=== PATIENT | male | born 1980 | race Caucasian/White ===

== ENCOUNTER 2024-05-08 08:05 | Emergency (ER) | payer SELFPAY ==
[2024-05-08 08:13] VITALS: BP 139/87; PULSE 85; RESP 17; TEMP 36.8; O2SAT 94; BMI 25.8
--- NOTE | 2024-05-08 08:50 | W.ED.GENADLT ---
HPI - General Adult General: Chief complaint: General Medical Stated complaint: generalized pain, something is moving inside him Time Seen by Provider: 05/08/24 08:29 History of Present Illness: Patient presents to the ER with complaints of feeling something moving around inside of him. He says this been going on for about 3 years he has been to multiple ERs primary care doctor had multiple tests. He is from the [facility] and has seen all the providers in that area and is worked his way all the way out to here. Related Data Home Medications ?Medication ?Instructions ?Recorded ?Confirmed No Known Home Medications 05/08/24 05/08/24 Allergies Allergy/AdvReac Type Severity Reaction Status Date / Time Unable to Assess Allergy Unverified 05/08/24 08:17 Review of Systems General: Reports: 10 or more systems reviewed and unremarkable except in HPI and below Physical Exam Const: COMMON NORMALS: no acute distress, average body habitus, patient oriented x3, no limitations, healthy appearing, alert and well nourished HENMT: COMMON NORMALS: normocephalic, atraumatic, hearing grossly normal bilaterally, external ears normal, Normal external nose present, moist oral mucous membranes and oropharynx normal HEAD & SCALP: normocephalic and atraumatic NOSE: Normal external nose present EXTERNAL EAR: Yes external ears normal Neck/C-Spine: COMMON NORMALS: no JVD Chest: COMMONS NORMALS: normal inspection of the chest and normal palpation of entire chest wall Resp: COMMON NORMALS: normal respiratory effort, No retractions, No use of accessory muscles and clear to auscultation bilaterally AUSCULTATION: clear to auscultation bilaterally Cardio: COMMON NORMALS: no JVD, regular rate, regular rhythm, S1 normal heart sound present, S2 normal heart sound present, No gallops present (Cardio), No clicks present (Cardio), No murmurs present (Cardio) and No rub (Cardio) RATE: regular rate RHYTHM: regular rhythm HEART SOUNDS: S1 normal heart sound present and S2 normal heart sound present GI: COMMON NORMALS: Normal to inspection, nondistended, normoactive bowel sounds present, Soft to palpation, non-tender, No hepatosplenomegaly present and no masses PALPATION: Yes Soft to palpation and Yes No hepatosplenomegaly present Neuro: COMMON NORMALS: patient oriented x3 SENSORIUM/ORIENTATION: Yes alert Course Vital Signs: Vital signs: Vital Signs Temperature 98.3 F 05/08/24 08:13 Pulse Rate 85 05/08/24 08:13 Respiratory Rate 17 05/08/24 08:13 Blood Pressure 139/87 05/08/24 08:13 Pulse Oximetry 94 05/08/24 08:13 Oxygen Delivery Me thod Room Air 05/08/24 08:13 MDM - General Adult Medical Decision Making Lab work was discussed with patient. All essentially normal. Patient would like hemoglobin A1c, lupus panel, and alpha gal panel drawn. He was told these are more likely send outs. We will draw them and discharge him. He is to follow back up with his PCP within the next 7 days. Medical Records I reviewed the patient's medical records. Lab Data I reviewed the patient's lab results. 05/08/24 08:49 05/08/24 08:49 Laboratory Results WBC 6.92 10^3/uL (3.29-11.43) 05/08/24 08:49 RBC 5.57 10^6/uL (3.85-5.65) 05/08/24 08:49 Hgb 16.40 g/dL (11.27-16.99) 05/08/24 08:49 Hct 49.0 % (37-53) 05/08/24 08:49 MCV 88.0 fl (82-101) 05/08/24 08:49 MCH 29.4 pg (27-33) 05/08/24 08:49 MCHC 33.5 g/dL (30-55) 05/08/24 08:49 RDW 12.5 % (12.1-15.1) 05/08/24 08:49 Plt Count 250 10^3/cmm (157-399) 05/08/24 08:49 MPV 9.8 fL (7.4-10.4) 05/08/24 08:49 Neut % (Auto) 48.2 % 05/08/24 08:49 Lymph % (Auto) 41.0 % 05/08/24 08:49 [place] % (Auto) 5.6 % 05/08/24 08:49 Eos % (Auto) 3.9 % 05/08/24 08:49 Baso % (Auto) 1.0 % 05/08/24 08:49 Neut # (Auto) 3.33 10^3/uL (1.8-7.7) 05/08/24 08:49 Lymph # (Auto) 2.8 10^3/uL (0.8-4.8) 05/08/24 08:49 Ramsey # (Auto) 0.4 10^3/uL (0.2-0.9) 05/08/24 08:49 Eos # (Auto) 0.3 10^3/uL (0.0-0.8) 05/08/24 08:49 Baso # (Auto) 0.1 10^3/uL (0.0-0.1) 05/08/24 08:49 Nucleated RBC % (auto) 0 % 05/08/24 08:49 Nucleated RBCs # 0.0 /100WBC 05/08/24 08:49 Sodium 142 mmol/L (136-145) 05/08/24 08:49 Potassium 4.1 mmol/L (3.5-5.1) 05/08/24 08:49 Chloride 106 mmol/L (98-107) 05/08/24 08:49 Carbon Dioxide 26 mmol/L (22-29) 05/08/24 08:49 Anion Gap 14.1 (5-19) 05/08/24 08:49 BUN 11 mg/dL (6-20) 05/08/24 08:49 Creatinine 0.8 mg/dL (0.7-1.2) 05/08/24 08:49 GFR Calculation 106.0 mL/min (90-130) 05/08/24 08:49 Glucose 99 mg/dL (65-115) 05/08/24 08:49 Calculated Osmolality 293 mOsm/kg (285-295) 05/08/24 08:49 Calcium 9.2 mg/dL (8.5-10.5) 05/08/24 08:49 Total Bilirubin 1.7 mg/dL (0.15-1.2) H 05/08/24 08:49 AST 15 U/L (0-40) 05/08/24 08:49 ALT 12 U/L (0-41) 05/08/24 08:49 Alkaline Phosphatase 76 U/L (40-130) 05/08/24 08:49 Total Protein 7.3 g/dL (6.6-8.7) 05/08/24 08:49 Albumin 4.7 g/dL (3.5-5.2) 05/08/24 08:49 Globulin 2.6 g/dL (1.3-4.6) 05/08/24 08:49 Urine Color Yellow (Yellow) 05/08/24 08:56 Urine Appearance Clear (CLEAR) 05/08/24 08:56 Urine pH 7 (5-7) 05/08/24 08:56 Ur Specific [place] 1.010 (1.005-1.030) 05/08/24 08:56 Urine Protein Neg (Negative) 05/08/24 08:56 Urine Glucose (UA) Norm (Normal) 05/08/24 08:56 Urine Ketones Negative (Negative) 05/08/24 08:56 Urine Blood Neg (Negative) 05/08/24 08:56 Urine Nitrate Negative (Negative) 05/08/24 08:56 Urine Bilirubin Neg (Negative) 05/08/24 08:56 Urine Urobilinogen Neg mg/dL (Negative) 05/08/24 08:56 Ur Leukocyte Esterase Negative (Negative) 05/08/24 08:56 Urine RBC 0-2 /hpf (0-2) 05/08/24 08:56 Urine WBC 0-5 /hpf (0-5) 05/08/24 08:56 Ur Squamous Epith Cells 0-5 /hpf (0-5) 05/08/24 08:56 Amorphous Sediment Not Reportable 05/08/24 08:56 Urine Bacteria None seen /hpf (NONE) 05/08/24 08:56 Hyaline Casts 0-4 /lpf H 05/08/24 08:56 Urine Opiates Screen Negative ng/mL (Negative) 05/08/24 08:56 Ur Barbiturates Screen Negative ng/mL (Negative) 05/08/24 08:56 Ur Phencyclidine Scrn Negative ng/mL (Negative) 05/08/24 08:56 Ur Amphetamines Screen Negative ng/mL (Negative) 05/08/24 08:56 U Benzodiazepines Scrn Negative ng/mL (Negative) 05/08/24 08:56 Urine Cocaine Screen Negative ng/mL (Negative) 05/08/24 08:56 U Marijuana (THC) Screen Negative ng/mL (Negative) 05/08/24 08:56 All radiology interpretation(s) finalized by discharge Discharge Plan Discharge Patient Disposition: Home Clinical Impression: Normal exam Condition: Stable Prescriptions: No Action No Known Home Medications Discharge Orders: Discharge ED (Routine); Ordered 05/08/24 Ordered By: Mati Sarabia Patient Instructions: Normal Exam (ED) Activity Restrictions/Additional Instructions: All your lab test performed in the ER that we got the results back are normal. There were some send out labs. Once we get those results we may call you with the results. Otherwise follow-up with your family practice physician within next 7 days for further evaluation treatment. Print Language: Ethiopian Coding Level of Care Code ED Senior [employer] for Claudine Lara
[2024-05-08 08:59] LABS: Basophils # 0.1 10^3/uL (0.0-0.1); Eosinophils # 0.3 10^3/uL (0.0-0.8); Eosinophils % 3.9 %; Lymphocytes # 2.8 10^3/uL (0.8-4.8); Mean Corpuscular HGB Conc 33.5 g/dL (30-55); Mean Corpuscular Hemoglobin 29.4 pg (27-33); Mean Platelet Volume 9.8 fL (7.4-10.4); Monocytes # 0.4 10^3/uL (0.2-0.9); Monocytes % 5.6 %; Neutrophils # 3.33 10^3/uL (1.8-7.7); Neutrophils % 48.2 %; Nucleated Red Blood Cells % 0 %; Platelet Count 250 10^3/cmm (157-399); Red Blood Count 5.57 10^6/uL (3.85-5.65); Red Cell Distribution Width 12.5 % (12.1-15.1); White Blood Count 6.92 10^3/uL (3.29-11.43)
[2024-05-08 09:05] LABS: Add Urine Microscopic? NO
[2024-05-08 09:08] LABS: Bilirubin Urine Neg (Negative); Blood Urine Neg (Negative); Glucose Urine UA Norm (Normal); Ketones Urine Negative (Negative); Leukocyte Esterase Urine Negative (Negative); Nitrate Urine Negative (Negative); Protein Urine Neg (Negative); Urine Appearance Clear (CLEAR); Urine Color Yellow (Yellow); Urobilinogen Urine Neg (Negative); pH Urine 7 (5-7)
[2024-05-08 09:09] LABS: Charge for UA Resulting for Rev
[2024-05-08 09:10] LABS: Bacteria Urine None Seen /hpf; Hyaline Casts Urine 0-4 /lpf; RBC Urine 0-2 /hpf (0-2); Squamous Epithelial Cell Urine 0-5 /hpf (0-5); WBC Urine 0-5 /hpf (0-5)
[2024-05-08 09:13] LABS: Alanine Aminotransferase 12 U/L (0-41); Albumin Level 4.7 g/dL (3.5-5.2); Alkaline Phosphatase 76 U/L (40-130); Anion Gap 14.1 (5-19); Aspartate Amino Transferase 15 U/L (0-40); Blood Urea Nitrogen 11 mg/dL (6-20); Calcium 9.2 mg/dL (8.5-10.5); Carbon Dioxide 26 mmol/L (22-29); Chloride 106 mmol/L (98-107); Globulin 2.6 g/dL (1.3-4.6); Glucose 99 mg/dL (65-115); Osmolality Calculated 293 mOsm/kg (285-295); Potassium 4.1 mmol/L (3.5-5.1); Sodium 142 mmol/L (136-145); Total Bilirubin 1.7 mg/dL (0.15-1.2); Total Protein 7.3 g/dL (6.6-8.7)
[2024-05-08 09:18] LABS: Amphetamines Screen Urine Negative (Negative); Barbiturates Screen Urine Negative (Negative); Benzodiazepines Screen Urine Negative (Negative); Cocaine Screen Urine Negative (Negative); Opiate Screen Urine Negative (Negative); PCP Screen Urine Negative (Negative); THC Screen Urine Negative (Negative)
[2024-05-08 10:25] LABS: Estmated Average Glucose 100; Hemoglobin A1C 5.1 % (4.0-6.0)
[2024-05-08 10:58] VITALS: BP 128/98; PULSE 71; O2SAT 98
[2024-05-10 14:04] LABS: Cyclic Citrullinated Peptide <16 UNITS
[2024-05-10 15:11] LABS: Beef (27) IgE 0.11 kU/L; Beef Class 0/1; Lamb (F88) IgE <0.10 kU/L; Lamb Class 0; Pork (F26) IgE <0.10 kU/L; Pork Class 0
== END 2024-05-08 10:59 | disposition home or self-care (01) ==
PROVIDERS: Emergency Provider Emergency Medicine
DX: Z00.00 Encounter for general adult medical examination without abnormal findings (principal)
CPT/HCPCS: 36415; 80053; 80306; 81003; 83036; 85025; 86003; 86008; 86200; 86431; 99283